=== PATIENT | female | born 1950 | race Caucasian/White ===

== ENCOUNTER 2018-11-20 09:36 | Inpatient (IN) ==
[2018-11-20] MEDS ORDERED: Bupivacaine 0.5% Inj 50 ML MDV Vial ONE ×4 (10:36→14:10)
[2018-11-20] MEDS ORDERED: Sodium Chlor 0.9% Inj 100 ML ONE (10:36)
[2018-11-20] MEDS ORDERED: ceFAZolin Inj 1 GM Vial (Addvantage) IV.SIG ONE (10:36)
[2018-11-20] MEDS ORDERED: Metoprolol Tartrate 25 MG Tablet PO ONE (11:00)
[2018-11-20] MEDS ORDERED: Chlorhexidine Gluconate 2% 1 Pack (2 Cloths) TOPICAL ONE (11:00)
[2018-11-20] MEDS ORDERED: Sodium Chlor 0.9% Inj 500 ML IV.CONT ONE (11:00)
[2018-11-20] MEDS ORDERED: Famotidine PF Inj 20 MG/2 ML Vial ONE (11:01)
--- NOTE | 2018-11-20 11:56 | P.HPUP ---
The Pre-Admit History and Physical Examination regarding the above named patient was reviewed (including, but not limited to, vital signs, heart, lungs, co-morbid conditions), and upon re-examination it is noted that: the patient's condition has not significantly changed since the last examination.
[2018-11-20] MEDS ORDERED: ceFAZolin Inj 1 GM in Sodium Chlor 0.9% Inj 100 ML IV.SIG ONE (12:00)
[2018-11-20] MEDS ORDERED: Neostigmine Inj 5 MG/5 ML Syringe IV.PUSH ONE (12:03)
[2018-11-20] MEDS ORDERED: Lidocaine PF 1% Inj 5 ML Syringe OTHER ONE (12:03)
[2018-11-20] MEDS ORDERED: Glycopyrrolate Inj 1 MG/5 ML Syringe IV.PUSH ONE (12:03)
[2018-11-20] MEDS ORDERED: Potassium Chlor 40 mEq Premix 40 MEQ/100 ML PIGGYBACK IV.SIG PRN (14:28)
[2018-11-20] MEDS ORDERED: Potassium Chlor 20 mEq Premix 20 MEQ/100 ML PIGGYBACK IV.SIG PRN (14:28)
[2018-11-20] MEDS ORDERED: Morphine Inj 30 MG/30 ML PCA.VIAL PCA PRN (14:28)
[2018-11-20] MEDS ORDERED: Naloxone Inj 0.4 MG/ML Vial IV.PUSH PRN (14:28)
[2018-11-20] MEDS ORDERED: HYDROmorphone PF Inj 0.5 MG/0.5 ML Syringe ONE ×2 (15:04→15:45)
[2018-11-20] MEDS: KCL 20 mEq/D5W/NaCl 0.9% Inj 1,000 ML IV.CONT SCH (15:11)
[2018-11-20] MEDS: Ketorolac Inj 30 MG/ML (IVP) Vial IV.PUSH PRN (16:00)
--- NOTE | 2018-11-20 21:21 | MP ---
cc: Abdirahman Brooks MD, Andrew H MD DATE OF OPERATION: 11/20/2018 PREOPERATIVE DIAGNOSIS: Carcinoma of the rectosigmoid. PROCEDURE: Exploratory laparotomy with proctosigmoidectomy and low pelvic anastomosis. 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 SURGEON: Abdirahman Brooks MD CLAM TREADER: Tashi Delaney MD DESCRIPTION OF PROCEDURE: The patient was placed in the supine position. After adequate general anesthesia, her legs were placed in universal stirrups and supported appropriately. The abdomen and perineum were then prepped with Betadine solution and draped in the usual sterile fashion. With Dr. Delaney's assistance, the abdomen was opened through an infraumbilical transverse incision, dividing the rectus muscles with electrocautery. Exploration revealed some loops of sigmoid colon, which were quite redundant and stuck down in the pelvis at the site of the previous hysterectomy. These were freed and brought up into the abdominal wound. At this point, there was a palpable tumor probably several inches above the cul-de-sac with some serosal puckering, but it was not adherent to any surrounding structures. Proximal colon was found to be quite redundant but had no palpable masses. The small bowel was run from ligament of Treitz to ileocecal valve and felt to be normal. The liver was somewhat congested but normal to palpation. Gallbladder was unremarkable. The stomach and duodenum were normal. Great vessels were of normal caliber and fairly soft. The uterus and ovaries were surgically absent. First, the sigmoid colon was mobilized medially by dividing along the white line of Toldt. The left ureter was identified and carefully preserved. Dissection proceeded at the left gutter, freeing attachments to the retroperitoneum, taking down the splenic flexure and mobilizing the gastrocolic omentum off the transverse colon for a short distance. The right retroperitoneal space was then opened and the bowel dissected off the presacral fascia. The pedicle for the superior hemorrhoidal vessels identified and divided between Kellys obtaining hemostasis with Vicryl ties. Dissection then proceeded down toward the pelvic floor, mobilizing the bowel off the presacral fascia, preserving the presacral nerves. At a point above the cul-de-sac with adequate distal margin and the mesorectum taken with electrocautery, dividing the bowel finally between a pursestring suture device and a Carlito clamp. The bowel was incised to reach the rectal pouch without tension and with good blood supply, dividing the marginal artery at the appropriate point and dividing the bowel between a pursestring suture device and a Carlito clamp. The end of the bowel was sized to accept an EEA stapling anvil, and this was secured with the pursestring suture. Dr. Delaney inserted the EEA stapling instrument transanally under direct vision and was brought of the rectal pouch and the pursestring suture tied. The stapler was then reassembled, the bowel aligned properly, stapled closed and fired. Upon withdrawal, two complete donuts of tissue were seen. Gentle insufflation did confirm an airtight anastomosis. Abdomen was then irrigated copiously with normal saline. Adequate hemostasis achieved at all sites. Peterson-Argueta drain placed down into the presacral space and brought out through a stab wound in the right lower quadrant, secured to the skin with a nylon suture. The transverse incision was closed anatomically in 2 layers using #1 PDS sutures to reapproximate the respective fascial layers. On-Q catheter was placed into the rectus sheath on both sides and brought out through subcutaneous tunnels above the transverse incision. Subcutaneous tissues were irrigated copiously and the skin closed with a row of surgical irasema. The wound area washed with normal saline and dried, sterile dressing of Telfa and gauze applied. The patient tolerated the procedure quite well and was brought to the recovery room in stable condition. ADDENDUM: Before placing the stapling anvil in the end of the sigmoid colon, the proximal bowel was irrigated copiously with several liters of saline for an on-table bowel prep due to the large amount of liquid stool present in the colon. After lavage, the effluent was fairly clear and the procedure proceeded as noted above. Abdirahman Brooks MD [facility]/ , 08:54 PM , 09:04 PM
[2018-11-21] MEDS: KCL 20 mEq/D5W/NaCl 0.9% Inj 1,000 ML IV.CONT SCH ×4 (00:12→18:57)
[2018-11-21] MEDS: Pantoprazole Inj 40 MG Vial IV.PUSH SCH (08:41)
[2018-11-21 09:08] LABS: Hematocrit 37.9 % (35.0-46.0); Hemoglobin 12.8 gm/dL (11.6-15.3); Mean Corpuscular HGB Conc 33.7 % (32.0-36.0); Mean Corpuscular Hemoglobin 32.6 pg (27.0-34.0); Mean Corpuscular Volume 96.7 fL (80.0-100.0); Mean Platelet Volume 10.1 fL (7.0-11.0); Platelet Count 179 th/mm3 (150-450); Red Blood Count 3.92 mil/mm3 (4.00-5.30); White Blood Count 15.7 th/mm3 (4.0-11.0)
[2018-11-21 09:30] LABS: Calcium 7.9 mg/dL (8.5-10.1); Carbon Dioxide 24.8 meq/L (21.0-32.0); Potassium 4.2 meq/L (3.5-5.1)
[2018-11-21 10:00] LABS: Lymphocytes 1 % (9-44); Monocytes 4 % (0-8)
[2018-11-21 10:01] LABS: Platelet Estimate Normal (Normal); Platelet Morphology Normal (Normal)
--- NOTE | 2018-11-21 16:56 | P.PNCS ---
Subjective Colorectal Surgery Post Op Day #: 1 Interval history: afebrile, VSS UO good BRII min Objective Result Diagrams: 11/21/18 07:57 11/21/18 07:57 Objective Remarks: PE alert Abd - soft, flat, wound dry Assessment and Plan - Plan Imp: stable post-op OOB decr IVF tx to floor
[2018-11-21] MEDS: Dextrose 5%/NaCl 0.9% Inj 1,000 ML IV.CONT SCH ×3 (22:42→23:42)
[2018-11-22] MEDS: KCL 20 mEq/D5W/NaCl 0.9% Inj 1,000 ML IV.CONT SCH ×2 (01:06→14:52)
[2018-11-22 06:07] LABS: Baso % (Auto) 0.2 % (0.0-2.0); Hematocrit 36.3 % (35.0-46.0); Hemoglobin 12.1 gm/dL (11.6-15.3); Lymph # (Auto) 1.1 th/mm3 (1.0-4.8); Lymph % (Auto) 7.7 % (9.0-44.0); Mean Corpuscular HGB Conc 33.2 % (32.0-36.0); Mean Corpuscular Hemoglobin 32.4 pg (27.0-34.0); Mean Corpuscular Volume 97.3 fL (80.0-100.0); Mean Platelet Volume 9.4 fL (7.0-11.0); Mono # (Auto) 0.9 th/mm3 (0.0-0.9); Mono % (Auto) 6.1 % (0.0-8.0); Neut # (Auto) 12.1 th/mm3 (1.8-7.7); Platelet Count 165 th/mm3 (150-450); Red Blood Count 3.73 mil/mm3 (4.00-5.30); Red Cell Distribution Width 12.9 % (11.6-17.2)
[2018-11-22 06:35] LABS: Anion Gap 7 meq/L (5-15); Blood Urea Nitrogen 10 mg/dL (7-18); Carbon Dioxide 26.2 meq/L (21.0-32.0); Chloride 105 meq/L (98-107); Glomerular Filtration Rate Greater Than 89 mL/min (>89); Glucose,Random 147 mg/dL (74-106); Potassium 3.9 meq/L (3.5-5.1); Sodium 138 meq/L (136-145)
[2018-11-22] MEDS: Pantoprazole Inj 40 MG Vial IV.PUSH SCH (08:55)
--- NOTE | 2018-11-22 17:56 | P.PNCS ---
Subjective Colorectal Surgery Post Op Day #: 2 Interval history: afebrile, VSS UO good pamela PO Objective Result Diagrams: 11/22/18 05:17 11/22/18 05:17 Objective Remarks: PE alert Abd - soft, flat, wound dry, some flatus Assessment and Plan - Plan Imp: stable post-op OOB decr IVF adv diet
[2018-11-22] MEDS: Ketorolac Inj 30 MG/ML (IVP) Vial IV.PUSH PRN (22:46)
[2018-11-23] MEDS: KCL 20 mEq/D5W/NaCl 0.9% Inj 1,000 ML IV.CONT SCH ×3 (05:08→20:36)
[2018-11-23] MEDS: Ketorolac Inj 30 MG/ML (IVP) Vial IV.PUSH PRN ×2 (05:58→12:37)
[2018-11-23] MEDS: Pantoprazole Inj 40 MG Vial IV.PUSH SCH (08:41)
[2018-11-24] MEDS: Pantoprazole Inj 40 MG Vial IV.PUSH SCH (09:13)
--- NOTE | 2018-11-24 10:31 | P.PN ---
Subjective Interval history: AVSS abd soft nt SS drainage from inc - no infection P: dc doug home lito Physical Exam Vital signs: Vital Signs 11/23/18 12:00 11/23/18 16:00 11/23/18 20:00 Temperature 98.1 F 98.2 F 97.8 F Pulse Rate 79 81 82 Respiratory Rate 17 16 20 Blood Pressure 173/92 H 169/81 H 155/73 H Pulse Oximetry 98 100 96 11/24/18 00:00 11/24/18 08:00 Temperature 98 F 97.9 F Pulse Rate 78 78 Respiratory Rate 18 17 Blood Pressure 135/72 159/76 H Pulse Oximetry 97 95 Intake & Output 11/23/18 11/24/18 11/24/18 18:59 06:59 18:59 Intake Total 1002 / 1002 Output Total 90 / 90 700 / 700 Balance 912 / 912 -700 / -700 Weight 88.7 kg Intake: IV 1000 / 1000 D5W/NS + KCL 20 mEq Inj 1,000 1000 / 1000 ML @ 60 mls/hr IV.CONT .[id number] [facility] Rx#:[id number] Oral 2 / 2 Output: Urine 700 / 700 Wound Drainage 90 / 90 # 1 Right Medial Abdomen 90 / 90 Other: # Voids 3 Date of Last Bowel Movement 11/23/18 - Urinary Catheter Management Indwelling Urethral Catheter Cath placed during this visit: yes, but has since been removed by the nurse Reason for continuing: Not indwelling catheter Insertion date: 11/20/18 Insertion time: 12:23 Removal date: 11/22/18 Removal time: 14:45 Results - Labs CBC & Chem 7: 11/22/18 05:17 11/22/18 05:17
[2018-11-24] MEDS: KCL 20 mEq/D5W/NaCl 0.9% Inj 1,000 ML IV.CONT SCH (14:35)
[2018-11-25] MEDS: Pantoprazole Inj 40 MG Vial IV.PUSH SCH (10:03)
[2018-11-25 12:42] VITALS: TEMP 98
[2018-11-25 16:48] VITALS: BP 137/76; PULSE 70; RESP 20; O2SAT 100
--- NOTE | 2018-11-25 22:43 | P.PNCS ---
Subjective Colorectal Surgery Post Op Day #: 5 Interval history: afebrile, VSS UO good pamela PO +BM Objective Result Diagrams: 11/22/18 05:17 11/22/18 05:17 Objective Remarks: PE alert Abd - soft, flat, wound dry, some flatus no disch Assessment and Plan - Plan Imp: OOB decr IVF adv diet DC plans
== END 2018-11-25 18:25 | disposition home or self-care (01) | DRG 331 ==
LOC: HSDI 09:36 → HCIN 21:05 → N07 11-21 18:12
PROVIDERS: ADMIT Colon & Rectal Surgery; ATTEND Colon & Rectal Surgery
CPT/HCPCS: 76937; 80048; 82948; 82962; 85025; 86850; 86900; 86901; 88309; 94150; C9113; J0131; J0690; J1100; J1170; J1885; J2405; J2704; J2710; J2765; J3480; J7120; J8501